=== PATIENT | female | born 1990 | race American Indian/Alaskan Native ===

== ENCOUNTER 2016-06-19 14:50 | Emergency (ER) | payer OTHER ==
--- NOTE | 2016-06-19 16:13 | Emergency Department Report ---
Chief Complaint: Dental/Oral Stated Complaint: ABD PAIN/SOB Time Seen by Provider: 06/19/16 16:10 - HPI History of Present Illness: b lower quad pain lmp in nov has had this before but got no answers ob 1 y ago [facility] MSE screening note: Focused history and physical exam performed. Due to findings the following was ordered: ED Disposition for MSE Condition: Stable
[2016-06-19 18:24] LABS: Bacteria,Urine 2+ /HPF (Negative); Bilirubin,Urine NEG (Negative); Blood,Urine NEG (Negative); Ketones,Urine NEG (Negative); Leukocyte Esterase,Urine NEG (Negative); Mucus,Urine FEW /HPF; Nitrite,Urine NEG (Negative); Protein,Urine <15 mg/dL mg/dL (Negative); Urobilinogen,Urine < 2.0 mg/dL (<2.0); WBC,Urine < 1.0 /HPF (0.0-6.0)
--- NOTE | 2016-06-19 20:32 | Emergency Department Report ---
ED Abdominal Pain HPI - General Chief Complaint: Abdominal Pain Stated Complaint: ABD PAIN/SOB Time Seen by Provider: 06/19/16 20:03 Source: patient, family Mode of arrival: Ambulatory Limitations: No Limitations - History of Present Illness Initial Comments: 25-year-old -[place] female comes in with complaint abdominal pain and shortness of breathing for 2 hours. Patient reports she has a past medical history of a left ovarian cyst. She currently takes no medications. She does report that she has trouble moving her bowels but this is chronic. She does report her last bowel movement was today small amount was performed. She admits that her pain is sharp and pressure to the abdomen that radiates to the rectum. What makes it worse is sitting movement or bearing down. What improves it is nothing. Complaint: abdominal pain, other (pelvic pain) -: Sudden Time: 14:00 Location: LLQ, RLQ Radiation: none, other (rectum) Severity: severe Severity scale (0 -10): 10 Quality: sharp, other (pressure) Consistency: constant Improves With: nothing Worsens With: bowel movement, movement, rest (sitting down), other (bearing down ) Associated Symptoms: denies other symptoms - Related Data Previous Rx's Medication Instructions Recorded Last Taken Type Ibuprofen [Motrin 800 MG tab] 800 mg PO Q8HR #30 tablet 06/19/16 Unknown Rx Allergies Allergy/AdvReac Type Severity Reaction Status Date / Time No Known Allergies Allergy Verified 11/13/13 00:55 ED Review of Systems ROS: Stated complaint: ABD PAIN/SOB Other details as noted in HPI ED Past Medical Hx - Past Medical History Previous Medical History?: No Additional medical history: ovarian cyst/ muscle strain - Surgical History Past Surgical History?: No - Social History Smoking Status: Never Smoker Substance Use Type: Non Opiate Pain - Medications Home Medications: Home Medications Medication Instructions Recorded Confirmed Last Taken Type Ibuprofen [Motrin 800 MG tab] 800 mg PO Q8HR #30 tablet 06/19/16 Unknown Rx ED Physical Exam - General Limitations: No Limitations General appearance: alert, in no apparent distress - Head Head exam: Present: atraumatic - Eye Eye exam: Present: normal appearance, PERRL, EOMI - ENT ENT exam: Present: normal exam, mucous membranes moist - Cardiovascular Cardiovascular Exam: Present: regular rate, normal rhythm, normal heart sounds - GI/Abdominal GI/Abdominal exam: Present: soft, tenderness (left lower right lower quadrant). Absent: distended, guarding, rebound - Extremities Exam Extremities exam: Present: normal inspection, full ROM. Absent: tenderness - Back Exam Back exam: Present: normal inspection - Neurological Exam Neurological exam: Present: alert, oriented X3 - Psychiatric Psychiatric exam: Present: normal affect, normal mood - Skin Skin exam: Present: warm, dry, intact ED Course Vital Signs 06/19/16 16:11 Temperature 98 F Pulse Rate 89 Respiratory 18 Rate Blood Pressure 124/81 O2 Sat by Pulse 100 Oximetry ED Medical Decision Making - Lab Data Result diagrams: 06/19/16 20:28 06/19/16 20:28 - Radiology Data Radiology results: report reviewed, image reviewed FINAL REPORT PROCEDURE: CT ABDOMEN PELVIS W CON TECHNIQUE: Computerized axial tomography of the abdomen and pelvis was performed after the IV injection of iodinated nonionic contrast. HISTORY: abd and pelvic pain COMPARISON: No prior studies are available for comparison. FINDINGS: Visualized lower thorax: No significant abnormality. Liver: Normal size and attenuation. Spleen: Normal size and attenuation. Gallbladder and biliary system: Normal. Pancreas: Normal. Adrenals: Normal. Kidneys: Normal. GI tract: Appendix is visualized and does not appear inflamed. No bowel obstruction or acute inflammation is seen. Lymph nodes and mesentery: Normal. Vasculature: Normal. Bladder: Normal. Reproductive organs: Right ovary is mildly prominent. There is a 2 centimeter right ovarian cyst. Possible adjacent complex right ovarian cyst. Peritoneum: No free fluid. Musculoskeletal structures: No significant abnormality. Other: None. IMPRESSION: Mildly prominent right ovary, with cystic changes. Evaluation with ultrasound could be obtained as clinically warranted. No acute inflammatory changes are seen. Transcribed By: [facility] Dictated By: OSCAR VOGT M.D. Electronically Authenticated By: OSCAR VOGT M.D. Signed Date/Time: 06/19/16 3796 - Medical Decision Making Patient she's been evaluated by this provider fast track. Patient's order a CAT scan lab work negative test. Discharge patient for follow-up with [facility] since it was noticed that she has a right ovarian cyst. Critical care attestation.: If time is entered above; I have spent that time in minutes in the direct care of this critically ill patient, excluding procedure time. ED Disposition Clinical Impression: Ovarian cyst Qualifiers: Laterality: right Qualified Code(s): N83.201 - Unspecified ovarian cyst, right side Disposition: DISCHARGED TO HOME OR SELFCARE Is pt being admited?: No Does the pt Need Aspirin: No Condition: Stable Instructions: Abdominal Pain (ED) Prescriptions: Ibuprofen [Motrin 800 MG tab] 800 mg PO Q8HR #30 tablet Referrals: PRIMARY CAREMD [Primary Care Provider] - 3-5 Days YOHANA GREY MD [Staff Physician] - 3-5 Days [facility] [Provider Group] - 3-5 Days Forms: Work/School Release Form(ED)
[2016-06-19 20:37] LABS: Basophils % (Auto) 0.3 % (0.0-1.8); Hematocrit 39.1 % (30.3-42.9); Hemoglobin 12.3 gm/dl (10.1-14.3); Mean Corpuscular HGB Conc 31 % (30-34); Platelet Count 364 K/mm3 (140-440); Red Cell Distribution Width 15.6 % (13.2-15.2); White Blood Count 10.4 K/mm3 (4.5-11.0)
[2016-06-19 20:41] LABS: Mean Corpuscular Hemoglobin 22 pg (28-32); Mean Corpuscular Volume 69 fl (79-97)
[2016-06-19 21:04] LABS: Alanine Aminotransferase 13 units/L (7-56); Albumin 4.2 g/dL (3.9-5); Albumin/Globulin Ratio 1.2 %; Alkaline Phosphatase 77 units/L (35-129); Anion Gap 18 mmol/L; Bilirubin,Total 0.2 mg/dL (0.1-1.2); Blood Urea Nitrogen 12 mg/dL (7-17); Calcium 9.5 mg/dL (8.4-10.2); Carbon Dioxide 24 mmol/L (22-30); Chloride 96.8 mmol/L (98-107); Glucose 120 mg/dL (65-100); Potassium 3.5 mmol/L (3.6-5.0); Sodium 135 mmol/L (137-145); Total Protein 7.6 g/dL (6.3-8.2)
--- NOTE | 2016-06-19 22:09 | Cat Scan Report ---
FINAL REPORT PROCEDURE: CT ABDOMEN PELVIS W CON TECHNIQUE: Computerized axial tomography of the abdomen and pelvis was performed after the IV injection of iodinated nonionic contrast. HISTORY: abd and pelvic pain COMPARISON: No prior studies are available for comparison. FINDINGS: Visualized lower thorax: No significant abnormality. Liver: Normal size and attenuation. Spleen: Normal size and attenuation. Gallbladder and biliary system: Normal. Pancreas: Normal. Adrenals: Normal. Kidneys: Normal. GI tract: Appendix is visualized and does not appear inflamed. No bowel obstruction or acute inflammation is seen. Lymph nodes and mesentery: Normal. Vasculature: Normal. Bladder: Normal. Reproductive organs: Right ovary is mildly prominent. There is a 2 centimeter right ovarian cyst. Possible adjacent complex right ovarian cyst. Peritoneum: No free fluid. Musculoskeletal structures: No significant abnormality. Other: None. IMPRESSION: Mildly prominent right ovary, with cystic changes. Evaluation with ultrasound could be obtained as clinically warranted. No acute inflammatory changes are seen.
[2016-06-19] MEDS ORDERED: MOTRIN PO ONE (22:34)
[2016-06-19 23:11] VITALS: BP 118/82
== END 2016-06-19 23:09 | disposition home or self-care (01) ==
LOC: ED 14:50
DX: N83.201 Unspecified ovarian cyst, right side (principal)
CPT/HCPCS: 36415; 74177; 80053; 81001; 84702; 85025; 93005; 93010; 99284; Q9967

== ENCOUNTER 2017-03-03 19:05 | Outpatient (CLI) | payer MEDICAID, OTHER ==
[2017-03-03] MEDS ORDERED: LACTATED RINGERS 500 ML IV ONE (19:22)
[2017-03-03 19:27] VITALS: BP 122/64
== END 2017-03-03 20:51 | disposition home or self-care (01) ==
LOC: TRG 19:05
PROVIDERS: ATTEND Obstetrics & Gynecology
DX: O47.03 False labor before 37 completed weeks of gestation, third trimester (principal); Z3A.30 30 weeks gestation of pregnancy